=== PATIENT | female | born 2000 | race Two or more races ===

== ENCOUNTER 2022-06-21 20:15 | Emergency (ER) | payer OTHER ==
[~2022-06-21] VITALS: Ht 167.6 cm; Wt 88.6 kg
[2022-06-21 22:30] VITALS: BP 134/74
[2022-06-21] MEDS ORDERED: ACET-1158 PO (22:36)
[2022-06-21] MEDS ORDERED: AMOX-277 PO (22:36)
== END 2022-06-21 22:49 | disposition home or self-care (01) ==
LOC: ER 20:18
DX: H66.92 Otitis media, unspecified, left ear (principal); J06.9 Acute upper respiratory infection, unspecified

== ENCOUNTER → 2024-05-30 | Outpatient (CLI) | payer MEDICAID ==
[~2024-05-30] MED LIST: ACET500T58 PO; AMOX875T4 PO
[2024-05-31 13:06] LABS: Chlamydia Trachomatis, NAA Negative (Negative); Neisseria gonorrhoeae, NAA Negative (Negative)
== END | disposition home or self-care (01) ==
LOC: LAB 10:02
PROVIDERS: ATTEND Obstetrics & Gynecology
DX: Z34.00 Encounter for supervision of normal first pregnancy, unspecified trimester (principal); Z72.51 High risk heterosexual behavior; Z3A.00 Weeks of gestation of pregnancy not specified

== ENCOUNTER 2024-07-21 07:53 | Observation (INO) | payer MEDICAID ==
[2024-07-21] MEDS ORDERED: PREN-96 PO (11:16)
--- NOTE | 2024-07-21 12:05 | DVH ---
Procedure: US BIOPHYSICAL PROFILE 07/21/2024 11:14 AM Indication: term Comparison: None Technique: Sonogram of gravid uterus utilizing grayscale and color techniques. FINDINGS: Single living intrauterine gestation. Presentation: Cephalic Placenta: Anterior, grade 3 heart rate: 140 bpm SAVANNAH: 14.4 cm, DVP: 4.2 cm Maternal cervix: Not visualized Biophysical Profile: breathing score: 2 movement score: 2 tone: 2 Quantitative SAVANNAH score: 2 Total score: 8/8 IMPRESSION: 1. Single living as above. 2. Biophysical profile score: 8/8.
[2024-07-21 13:36] LABS: Urine Bacteria FEW /hpf (None Seen); Urine Blood Negative /uL (Negative); Urine Color Yellow (Yellow); Urine Mucus FEW (None Seen); Urine Protein, UAD 1+ (Negative); Urine Specific Gravity 1.026 (1.001-1.035); Urine Squamous Epithelial Cell MANY /hpf (<5); Urine Urobilinogen Normal (Negative); Urine WBC 6 /HPF (0-5)
[2024-07-21 13:37] LABS: Protein, Urine 40.7 mg/dL (1-14)
[2024-07-21 13:38] LABS: Basophils # (auto) 0 10 ^3/uL (0-0.2); Basophils % (auto) 0.4 % (0.0-2.0); Eosinophils # (auto) 0.1 10 ^3/uL (0-0.8); Eosinophils % (auto) 0.6 % (0.0-7.0); Hemoglobin 13.5 g/dL (12.2-16.2); Lymphocytes # (auto) 1.4 10 ^3/uL (0.4-5.4); Lymphocytes % (auto) 13.4 % (10.0-50.0); Mean Corpuscular Hemoglobin 30.3 pg (28.0-32.0); Mean Corpuscular Hgb Conc. 33.8 g/dL (32.0-36.0); Mean Corpuscular Volume 89.7 fL (80.0-100.0); Monocytes # (auto) 0.8 10 ^3/uL (0-1.3); Monocytes % (auto) 7.8 % (0.0-12.0); Neutrophils # (auto) 8.4 10 ^3/uL (1.6-8.6); Neutrophils % (auto) 77.8 % (37.0-80.0); Nucleated Red Blood Cells % 0.1 %; Platelet Count (auto) 249 10^3/uL (140-450); Red Blood Cells 4.46 10^6/uL (4.0-5.20); Red Cell Distribution Width 13.9 % (11.8-14.3); White Blood Cell 10.8 10^3/uL (4.4-10.8)
[2024-07-21 13:40] LABS: Creatinine, Urine 232.08 mg/dL (30.0-125.0); Urine Protein/Creatinine Ratio 0.18
[2024-07-21 13:43] LABS: Alanine Aminotransferase 14 U/L (7-40); Anion Gap 8 (5-15); BUN/Creatinine Ratio 12.3 (10.0-20.0); Bilirubin, Total 0.4 mg/dL (0.2-1.0); Blood Urea Nitrogen 9 mg/dL (9-23); Calcium 9.8 mg/dL (8.7-10.4); Carbon Dioxide 25 mmol/L (20-31); Glucose 92 mg/dL (74-106); Potassium 4.1 mmol/L (3.5-5.1); Sodium 140 mmol/L (136-145); Total Protein 6.4 g/dL (5.7-8.2); Uric Acid 4.7 mg/dL (3.1-7.8)
[2024-07-21 13:44] LABS: Alkaline Phosphatase 117 U/L (46-116); Aspartate Aminotransferase 10 U/L (13-40); Chloride 107 mmol/L (98-107); INR 0.89 (0.9-1.15); Partial Thromboplastin Time 30.9 SEC (24.5-34.5); Prothrombin Time 9.5 sec (9.3-11.8)
[2024-07-21 13:48] LABS: Urine Clarity Cloudy (Clear)
--- NOTE | 2024-07-22 06:33 | DVHDS2 ---
Physician Discharge Progress N Final Diagnosis: pih ruled out,40wks Operations or Procedures: Operations or Procedures nst,sono Condition on Discharge: Good Disposition: Home Discharge Instructions: Diet: Regular Activity: No Restrictions, As Tolerated Medications: na Follow Up Care: Specialist: 2d Discharge Statement: "Patient was advised to return to the ER or call 911 if any headaches, dizziness, shortness of breath, chest pain, abdominal pain, bleeding, fevers, or worsening of medical condition. Patient was counseled about treatment plan, medications, possible side effects, patientverbalized understanding. All questions were answered to the best of my ability. This discharge took greater then 30 minutes in planning, reviewing documentation, counseling the patient, and discussing with other team members." Visit Coding OBGYN Date of Service: Jul 21, 2024 Billing Provider: CHAR BAZAN DO EVENING OR NIGHT NURSE SUPERVISOR Common Visit Codes: [id number] INP/OBS CARE (HIGH) EVENING OR NIGHT NURSE SUPERVISOR Procedure Codes: 36121-68- NON-STRESS TEST CHAR BAZAN DO Jul 22, 2024 06:33
== END 2024-07-21 13:05 | disposition home or self-care (01) ==
LOC: UNDOADMOB 11:00 → LDRP 11:00
PROVIDERS: ADMIT Obstetrics & Gynecology; ATTEND Obstetrics & Gynecology
DX: O48.0 Post-term pregnancy (principal); O13.3 Gestational [pregnancy-induced] hypertension without significant proteinuria, third trimester; Z3A.40 40 weeks gestation of pregnancy; Z79.899 Other long term (current) drug therapy; Z98.890 Other specified postprocedural states
CPT/HCPCS: 36415; 76818; 80053; 81001; 81002; 82570; 84156; 84550; 85025; 85610; 85730; 94760; G0378; 76819

== ENCOUNTER 2024-07-23 04:56 | Observation (INO) | payer MEDICAID ==
[~2024-07-23 04:56] MED LIST changes: +PREN-96 PO
--- NOTE | 2024-07-23 10:37 | DVH ---
Procedure: US BIOPHYSICAL PROFILE 07/23/2024 10:06 AM Indication: Post dates Comparison: US BIOPHYSICAL PROFILE on DOS: 07/21/24 Technique: Sonogram of gravid uterus utilizing grayscale and color techniques. FINDINGS: Single living intrauterine gestation. Presentation: Cephalic Placenta: Anterior, grade 3 heart rate: 159 bpm SAVANNAH: 14.6 cm, DVP: 4.4 cm Maternal cervix: Not visualized Biophysical Profile: breathing score: 2 movement score: 2 tone: 2 Quantitative SAVANNAH score: 2 Total score: 8/8 IMPRESSION: 1. Single living as above. 2. Biophysical profile score: 8/8.
--- NOTE | 2024-07-23 18:44 | DVHDS2 ---
Physician Discharge Progress N Final Diagnosis: Term PREG,LABOR CHECK 40WKS Operations or Procedures: Operations or Procedures NST,SONO Condition on Discharge: Good Disposition: Home Discharge Instructions: Diet: Regular Activity: No Restrictions, As Tolerated Follow Up/Referral: IOL 07/24 night Medications: NA Follow Up Care: Specialist: 1 DAY FOR INDUCTION Discharge Statement: "Patient was advised to return to the ER or call 911 if any headaches, dizziness, shortness of breath, chest pain, abdominal pain, bleeding, fevers, or worsening of medical condition. Patient was counseled about treatment plan, medications, possible side effects, patientverbalized understanding. All questions were answered to the best of my ability. This discharge took greater then 30 minutes in planning, reviewing documentation, counseling the patient, and discussing with other team members." Visit Coding OBGYN Date of Service: Jul 23, 2024 Billing Provider: CHAR BAZAN DO EAR MUFF ASSEMBLER Common Visit Codes: [id number] INP/OBS CARE (HIGH) EAR MUFF ASSEMBLER Procedure Codes: 40723-36- NON-STRESS TEST CHAR BAZAN DO Jul 23, 2024 18:44
== END 2024-07-23 11:15 | disposition home or self-care (01) ==
LOC: LDRP 10:00
PROVIDERS: ADMIT Obstetrics & Gynecology; ATTEND Obstetrics & Gynecology
DX: O48.0 Post-term pregnancy (principal); Z98.890 Other specified postprocedural states; Z79.899 Other long term (current) drug therapy; Z3A.40 40 weeks gestation of pregnancy
CPT/HCPCS: 59025; 76819; 81002; G0378

== ENCOUNTER 2024-07-24 07:33 | Inpatient (IN) | payer MEDICAID ==
[~2024-07-24] VITALS: Ht 167.6 cm; Wt 104.3 kg
[2024-07-24] MEDS ORDERED: BUTORPHANOL TARTRATE 2 MG/1 ML VIAL IV PRN ×2 (21:15)
[2024-07-24 21:37] LABS: Basophils # (auto) 0.1 10 ^3/uL (0-0.2); Basophils % (auto) 0.8 % (0.0-2.0); Eosinophils # (auto) 0.1 10 ^3/uL (0-0.8); Eosinophils % (auto) 0.7 % (0.0-7.0); Hematocrit 39.8 % (36.0-46.0); Hemoglobin 13.4 g/dL (12.2-16.2); Lymphocytes # (auto) 1.9 10 ^3/uL (0.4-5.4); Lymphocytes % (auto) 18.2 % (10.0-50.0); Mean Corpuscular Hgb Conc. 33.7 g/dL (32.0-36.0); Mean Corpuscular Volume 88.8 fL (80.0-100.0); Monocytes # (auto) 0.9 10 ^3/uL (0-1.3); Monocytes % (auto) 8.4 % (0.0-12.0); Neutrophils # (auto) 7.6 10 ^3/uL (1.6-8.6); Neutrophils % (auto) 71.9 % (37.0-80.0); Nucleated Red Blood Cells % 0.1 %; Platelet Count (auto) 245 10^3/uL (140-450); Red Blood Cells 4.49 10^6/uL (4.0-5.20); Red Cell Distribution Width 14.5 % (11.8-14.3); White Blood Cell 10.6 10^3/uL (4.4-10.8)
[2024-07-24 21:50] LABS: Urine Bacteria FEW /hpf (None Seen); Urine Blood Negative /uL (Negative); Urine Clarity Turbid (Clear); Urine Color Yellow (Yellow); Urine Mucus FEW (None Seen); Urine Protein, UAD TRACE (Negative); Urine Specific Gravity 1.022 (1.001-1.035); Urine Squamous Epithelial Cell MOD /hpf (<5); Urine Urobilinogen Normal (Negative); Urine WBC 9 /HPF (0-5); Urine pH 5.5 (5.0-9.0)
[2024-07-24 21:54] LABS: Alanine Aminotransferase 14 U/L (7-40); Anion Gap 9 (5-15); Aspartate Aminotransferase 17 U/L (13-40); Calcium 9.8 mg/dL (8.7-10.4); Carbon Dioxide 23 mmol/L (20-31); Chloride 106 mmol/L (98-107); Potassium 3.8 mmol/L (3.5-5.1); Sodium 138 mmol/L (136-145); Total Protein 6.9 g/dL (5.7-8.2)
[2024-07-24 21:55] LABS: Albumin 4.2 g/dL (3.2-4.8); Bilirubin, Total 0.3 mg/dL (0.2-1.0)
[2024-07-24 21:57] LABS: Amphetamine Screen, Urine Neg (NEGATIVE); Barbiturate Scree,Urine Neg (NEGATIVE); Benzodiazephine Screen, Urine Neg (NEGATIVE); Cannabinoid Screen, Urine Neg (NEGATIVE); Cocaine Screen, Urine Neg (NEGATIVE); Opiate Scree,Urine Neg (NEGATIVE); Phencyclidine Screen, Urine Neg (NEGATIVE)
[2024-07-24 21:57] LABS: Alkaline Phosphatase 122 U/L (46-116); Blood Urea Nitrogen 9 mg/dL (9-23); Glucose 109 mg/dL (74-106)
[2024-07-24] MEDS: LACTATED RINGER'S 1,000 ML IV SCH (21:57)
[2024-07-24 22:06] LABS: INR 0.86 (0.9-1.15); Partial Thromboplastin Time 29.9 SEC (24.5-34.5); Prothrombin Time 9.3 sec (9.3-11.8)
[2024-07-25] MEDS: DERMOPLAST 60ML BOTTLE TOP PRN (00:15)
[2024-07-25] MEDS: miSOPROStol 50 MCG per PRE-CUT 1/2 TAB PO PRN (00:15)
[2024-07-25] MEDS: WITCH HAZEL-GLYCERIN PAD TOP PRN (00:15)
[2024-07-25] MEDS: PHISODERM TOP SOLN 240ML BTL TOP PRN (00:16)
--- NOTE | 2024-07-25 04:20 | DVHHP ---
CHIEF COMPLAINT: Here for induction of labor. HISTORY OF PRESENT ILLNESS: The patient is a 24-year-old 1, para 0 with EDC 07/21/2024, estimated gestational age of 40+ weeks, admitted for induction of labor. The patient denies having any rupture of membranes or bleeding. PAST MEDICAL HISTORY: None. PAST SURGICAL HISTORY: None. SOCIAL HISTORY: None. FAMILY HISTORY: None. OBSTETRIC AND GYNECOLOGIC HISTORY: Primigravid. GBS negative. Blood type A positive. Rubella immune. REVIEW OF SYSTEMS: Consistent with HPI. ALLERGIES: No known drug allergies. PHYSICAL EXAMINATION: VITAL SIGNS: Stable, afebrile. HEENT: Within normal limits. CARDIOVASCULAR: Regular rate and rhythm. LUNGS: Clear to auscultation. BREASTS: Symmetrical. No masses. ABDOMEN: Gravid. Positive heart. PELVIC: 1 cm, 50%, -3. EXTREMITIES: No clubbing, cyanosis or edema. IMPRESSION: Intrauterine at 40+ weeks, induction of labor. PLAN: Informed consent obtained. We will proceed with Cytotec. All questions answered. The patient wishes to proceed with planned procedure. DO KARINA Fisher/VAHE TID: [id number] RECEIPT: [id number]
--- NOTE | 2024-07-25 07:52 | DVHPN2 ---
[facility] Labor Progress Note Date and Time Seen Date Seen: Jul 25, 2024 Time Seen: 07:41 Subjective Patient reports: No new complaints Objective Vital Signs VSS, see chart Monitoring Method Monitoring Method: External Heart Rate Heart Rate Baseline: 135 Heart Rate Variability: Minimal Presence of FHR Accelerations: Yes Presence of FHR Decelerations: No Are all 5 Components of the FH: Yes Contractions Contractions Frequency: Occasional Duration of Contraction: 70 Contractions Intensity: Mild Contractions Resting Tone: Relaxed Membranes Membranes: Intact Vaginal Exam Vag Exam Deferred: No ([place] balloon inserted for cervical ripening with 60ml sterile fluid) Vaginal Exam Dilation: 2 Vaginal Exam Effacement: 60 Vaginal Exam Station: -2 Vaginal Exam Presentation: VTX Vaginal Exam Show: Small Medications Medications - Pitocin: No Medications - Pain Medications: PRN Medication - Epidural: No Medication - Other 2 doses of PO cytotec received thus far Lab Results Lab Results Current Medications Medications (Trade) Dose Ordered Sig/Randell Start Time Stop Time Status Last Admin Dose Admin Lactated Ringer's 1,000 ml @ 125 mls/hr Q8H 07/24/24 21:15 07/25/24 04:43 125 MLS/HR Witch Alka (Tucks) 1 pad PRN PRN 07/24/24 21:15 07/25/24 00:15 1 PAD Sodium Lauryl Sulfate (Phisoderm) 240 ml PRN PRN 07/24/24 21:15 07/25/24 00:16 240 ML Benzocaine (Dermoplast) 1 applic PRN PRN 07/24/24 21:15 07/25/24 00:15 1 APPLIC Butorphanol Tartrate (Stadol Injection) 1 mg Q4HPRN PRN 07/24/24 21:15 Butorphanol Tartrate (Stadol Injection) 2 mg Q4HPRN PRN 07/24/24 21:15 Misoprostol (Cytotec) 50 mcg Q4HPRN PRN 07/25/24 00:00 07/25/24 04:15 50 MCG Lidocaine HCl (Xylocaine) 20 ml ONCE PRN 07/24/24 21:15 Laboratory Tests Test 07/24/24 21:18 07/24/24 21:00 Range/Units White Blood Count 10.6 4.4-10.8 10^3/uL Red Blood Count 4.49 4.0-5.20 10^6/uL Hemoglobin 13.4 12.2-16.2 g/dL Hematocrit 39.8 36.0-46.0 % Mean Corpuscular Volume 88.8 80.0-100.0 fL Mean Corpuscular Hemoglobin 30.0 28.0-32.0 pg Mean Corpuscular Hemoglobin Concent 33.7 32.0-36.0 g/dL Red Cell Distribution Width 14.5 H 11.8-14.3 % Platelet Count 245 140-450 10^3/uL Mean Platelet Volume 8.7 6.9-10.8 fL Neutrophils (%) (Auto) 71.9 37.0-80.0 % Lymphocytes (%) (Auto) 18.2 10.0-50.0 % Monocytes (%) (Auto) 8.4 0.0-12.0 % Eosinophils (%) (Auto) 0.7 0.0-7.0 % Basophils (%) (Auto) 0.8 0.0-2.0 % Neutrophils # (Auto) 7.6 1.6-8.6 10 ^3/uL Lymphocytes # (Auto) 1.9 0.4-5.4 10 ^3/uL Monocytes # (Auto) 0.9 0-1.3 10 ^3/uL Eosinophils # (Auto) 0.1 0-0.8 10 ^3/uL Basophils # (Auto) 0.1 0-0.2 10 ^3/uL Nucleated Red Blood Cells 0.1 % Prothrombin Time 9.3 9.3-11.8 sec Prothrombin Time INR 0.86 L 0.9-1.15 Activated Partial Thromboplast Time 29.9 24.5-34.5 SEC Sodium Level 138 136-145 mmol/L Potassium Level 3.8 3.5-5.1 mmol/L Chloride Level 106 98-107 mmol/L Carbon Dioxide Level 23 20-31 mmol/L Anion Gap 9 5-15 Blood Urea Nitrogen 9 9-23 mg/dL Creatinine 0.75 0.550-1.02 mg/dL Glomerular Filtration Rate Calc 113 >90 mL/min BUN/Creatinine Ratio 12.0 10.0-20.0 Serum Glucose 109 H 74-106 mg/dL Calcium Level 9.8 8.7-10.4 mg/dL Total Bilirubin 0.3 0.2-1.0 mg/dL Aspartate Amino Transferase (AST) 17 13-40 U/L Alanine Aminotransferase (ALT) 14 7-40 U/L Alkaline Phosphatase 122 H 46-116 U/L Total Protein 6.9 5.7-8.2 g/dL Albumin 4.2 3.2-4.8 g/dL Treponema pallidum Antibody Non-reactive Negative Hepatitis C Antibody Negative Negative Urine Color Yellow Yellow Urine Clarity Turbid H Clear Urine pH 5.5 5.0-9.0 Urine Specific [place] 1.022 1.001-1.035 Urine Protein Trace H Negative Urine Ketones Negative Negative Urine Blood Negative Negative /uL Urine Nitrite Negative Negative Urine Bilirubin Negative Negative Urine Urobilinogen Normal Negative mg/dL Urine Leukocyte Esterase Trace Negative /uL Urine RBC 2 0 - 4 /hpf Urine Microscopic WBC 9 H 0-5 /HPF Urine Squamous Epithelial Cells Mod <5 /hpf Urine Bacteria Few H None Seen /hpf Urine Mucus Few None Seen Urine Glucose Normal Normal mg/dL Urine Opiates Screen Neg NEGATIVE Urine Fentanyl Screen Neg NEGATIVE Urine Barbiturates Screen Neg NEGATIVE Urine Phencyclidine Screen Neg NEGATIVE Urine Amphetamines Screen Neg NEGATIVE Urine Benzodiazepines Screen Neg NEGATIVE Urine Cocaine Screen Neg NEGATIVE Urine Cannabinoids Screen Neg NEGATIVE Assessment Assessment A: 24yo IUP@40.4wks Induction of Labor for post dates Category II EFM Intact Membranes GBS negative Plan Plan P: Continue PO cytotec when Category I EFM RN to apply traction to [place] balloon q1hr Intrauterine resuscitation PRN monitoring per order Pain mgmt PRN Frequent position changes in and out of bed encouraged Limit SVE unless necessary Anticipate CNM will consult with Dr. Paul PRN Plan discussed with: Patient, Spouse Visit Coding OBGYN Date of Service: Jul 25, 2024 Billing Provider: EDWINA PHILLIPS CNM TRIAL CONSULTANT Common Visit Codes: [id number] INP/OBS CARE(MOD) EDWINA PHILLIPS CNM Jul 25, 2024 07:52
--- NOTE | 2024-07-25 12:57 | DVHPN2 ---
CNM Labor Progress Note Date and Time Seen Date Seen: Jul 25, 2024 Time Seen: 12:54 Subjective Subjective Comment Pt feels more pain but tolerable still. Objective Vital Signs VSS, see chart Monitoring Method Monitoring Method: External Heart Rate Heart Rate Baseline: 130 Heart Rate Variability: Moderate Presence of FHR Accelerations: Yes Presence of FHR Decelerations: No Are all 5 Components of the FH: Yes Contractions Contractions Frequency: Other (q4 min) Duration of Contraction: 60 Contractions Intensity: Moderate Contractions Resting Tone: Relaxed Membranes Membranes: Ruptured Amniotic Fluid Color: CONSULTING UTILITY FORESTER Meconium (light) Vaginal Exam Vag Exam Deferred: Yes (SVE by RN: 5/70/-1) Vaginal Exam Presentation: VTX Medications Medications - Pitocin: No Medications - Pain Medications: PRN Medication - Epidural: No Lab Results Lab Results Vital Signs Date Time Temp Pulse Resp B/P (MAP) Pulse Ox O2 Delivery O2 Flow Rate FiO2 07/25/24 15:58 94 20 131/74 Current Medications Medications (Trade) Dose Ordered Sig/Randell Start Time Stop Time Status Last Admin Dose Admin Lactated Ringer's 1,000 ml @ 125 mls/hr Q8H 07/24/24 21:15 07/25/24 04:43 125 MLS/HR Witch Alka (Tucks) 1 pad PRN PRN 07/24/24 21:15 07/25/24 00:15 1 PAD Sodium Lauryl Sulfate (Phisoderm) 240 ml PRN PRN 07/24/24 21:15 07/25/24 00:16 240 ML Benzocaine (Dermoplast) 1 applic PRN PRN 07/24/24 21:15 07/25/24 00:15 1 APPLIC Butorphanol Tartrate (Stadol Injection) 1 mg Q4HPRN PRN 07/24/24 21:15 Butorphanol Tartrate (Stadol Injection) 2 mg Q4HPRN PRN 07/24/24 21:15 Misoprostol (Cytotec) 50 mcg Q4HPRN PRN 07/25/24 00:00 07/25/24 08:31 50 MCG Lidocaine HCl (Xylocaine) 20 ml ONCE PRN 07/24/24 21:15 Oxytocin 500 ml @ 999 mls/hr Q31M ONCE 07/25/24 11:15 07/25/24 12:05 DC Oxytocin 500 ml @ 125 mls/hr Q4H ONCE 07/25/24 11:45 07/25/24 15:44 DC Oxytocin 1,000 ml @ 6 ml/hr Q24H 07/25/24 11:15 07/25/24 13:00 6 ML/HR Nalbuphine HCl (Nubain) 10 mg Q4HP PRN 07/25/24 14:15 07/25/24 15:58 10 MG Ondansetron HCl (Zofran) 4 mg Q4HPRN PRN 07/25/24 14:15 07/25/24 15:59 4 MG Laboratory Tests Test 07/24/24 21:18 07/24/24 21:00 Range/Units White Blood Count 10.6 4.4-10.8 10^3/uL Red Blood Count 4.49 4.0-5.20 10^6/uL Hemoglobin 13.4 12.2-16.2 g/dL Hematocrit 39.8 36.0-46.0 % Mean Corpuscular Volume 88.8 80.0-100.0 fL Mean Corpuscular Hemoglobin 30.0 28.0-32.0 pg Mean Corpuscular Hemoglobin Concent 33.7 32.0-36.0 g/dL Red Cell Distribution Width 14.5 H 11.8-14.3 % Platelet Count 245 140-450 10^3/uL Mean Platelet Volume 8.7 6.9-10.8 fL Neutrophils (%) (Auto) 71.9 37.0-80.0 % Lymphocytes (%) (Auto) 18.2 10.0-50.0 % Monocytes (%) (Auto) 8.4 0.0-12.0 % Eosinophils (%) (Auto) 0.7 0.0-7.0 % Basophils (%) (Auto) 0.8 0.0-2.0 % Neutrophils # (Auto) 7.6 1.6-8.6 10 ^3/uL Lymphocytes # (Auto) 1.9 0.4-5.4 10 ^3/uL Monocytes # (Auto) 0.9 0-1.3 10 ^3/uL Eosinophils # (Auto) 0.1 0-0.8 10 ^3/uL Basophils # (Auto) 0.1 0-0.2 10 ^3/uL Nucleated Red Blood Cells 0.1 % Prothrombin Time 9.3 9.3-11.8 sec Prothrombin Time INR 0.86 L 0.9-1.15 Activated Partial Thromboplast Time 29.9 24.5-34.5 SEC Sodium Level 138 136-145 mmol/L Potassium Level 3.8 3.5-5.1 mmol/L Chloride Level 106 98-107 mmol/L Carbon Dioxide Level 23 20-31 mmol/L Anion Gap 9 5-15 Blood Urea Nitrogen 9 9-23 mg/dL Creatinine 0.75 0.550-1.02 mg/dL Glomerular Filtration Rate Calc 113 >90 mL/min BUN/Creatinine Ratio 12.0 10.0-20.0 Serum Glucose 109 H 74-106 mg/dL Calcium Level 9.8 8.7-10.4 mg/dL Total Bilirubin 0.3 0.2-1.0 mg/dL Aspartate Amino Transferase (AST) 17 13-40 U/L Alanine Aminotransferase (ALT) 14 7-40 U/L Alkaline Phosphatase 122 H 46-116 U/L Total Protein 6.9 5.7-8.2 g/dL Albumin 4.2 3.2-4.8 g/dL Treponema pallidum Antibody Non-reactive Negative Hepatitis C Antibody Negative Negative Urine Color Yellow Yellow Urine Clarity Turbid H Clear Urine pH 5.5 5.0-9.0 Urine Specific [place] 1.022 1.001-1.035 Urine Protein Trace H Negative Urine Ketones Negative Negative Urine Blood Negative Negative /uL Urine Nitrite Negative Negative Urine Bilirubin Negative Negative Urine Urobilinogen Normal Negative mg/dL Urine Leukocyte Esterase Trace Negative /uL Urine RBC 2 0 - 4 /hpf Urine Microscopic WBC 9 H 0-5 /HPF Urine Squamous Epithelial Cells Mod <5 /hpf Urine Bacteria Few H None Seen /hpf Urine Mucus Few None Seen Urine Glucose Normal Normal mg/dL Urine Opiates Screen Neg NEGATIVE Urine Fentanyl Screen Neg NEGATIVE Urine Barbiturates Screen Neg NEGATIVE Urine Phencyclidine Screen Neg NEGATIVE Urine Amphetamines Screen Neg NEGATIVE Urine Benzodiazepines Screen Neg NEGATIVE Urine Cocaine Screen Neg NEGATIVE Urine Cannabinoids Screen Neg NEGATIVE Assessment Assessment A: 24yo IUP@40.4wks Induction of Labor for post dates Category I EFM SROM, light meconium GBS negative Plan Plan Start IV pitocin per protocol monitoring per order Pain mgmt PRN Frequent position changes in and out of bed encouraged Limit SVE unless necessary Intrauterine resuscitation PRN Anticipate CNM will consult with Dr. Paul PRN Plan discussed with: Patient, Spouse Visit Coding OBGYN Date of Service: Jul 25, 2024 Billing Provider: EDWINA PHILLIPS CNM RADIOLOGICAL HEALTH SPECIALIST Common Visit Codes: [id number] INP/OBS CARE(HIGH) RADIOLOGICAL HEALTH SPECIALIST Procedure Codes: 12576-83- NON-STRESS TEST EDWINA PHILLIPS CNM Jul 25, 2024 12:57
[2024-07-25] MEDS: LACT. RINGERS/OXYTOCIN 20UNITS 1,000 ML IV SCH (13:00)
[2024-07-25] MEDS: NALBUPHINE HCL 10 MG/1ml INJECTION IV PRN (15:58)
[2024-07-25] MEDS: ONDANSETRON HCL 4 MG/2 ML VIAL IV PRN (15:59)
--- NOTE | 2024-07-25 16:32 | DVHPN2 ---
[facility] Labor Progress Note Date and Time Seen Date Seen: Jul 25, 2024 Time Seen: 15:55 Subjective Patient reports: Feels worse Subjective Comment Pt consents to IUPC/FSE insertion after discussion. Objective Vital Signs VSS, see chart Monitoring Method Monitoring Method: External Heart Rate Heart Rate Baseline: 140 Heart Rate Variability: Moderate Presence of FHR Accelerations: Yes Presence of FHR Decelerations: No Are all 5 Components of the FH: Yes Contractions Contractions Frequency: Other (q 2-4.5min) Duration of Contraction: 80 Contractions Intensity: Moderate Contractions Resting Tone: Relaxed Membranes Membranes: Ruptured Amniotic Fluid Color: NEEDLE LOOM SETTER Meconium (light) Vaginal Exam Vag Exam Deferred: No (IUPC inserted posteriorly, and FSE placed) Vaginal Exam Dilation: 6 Vaginal Exam Effacement: 80 Vaginal Exam Station: -1 Vaginal Exam Presentation: VTX Vaginal Exam Show: Small Medications Medications - Pitocin: Yes (2mu) Medications - Pain Medications: PRN Medication - Epidural: No Lab Results Lab Results Vital Signs Date Time Temp Pulse Resp B/P (MAP) Pulse Ox O2 Delivery O2 Flow Rate FiO2 07/25/24 15:58 94 20 131/74 Current Medications Medications (Trade) Dose Ordered Sig/Randell Start Time Stop Time Status Last Admin Dose Admin Lactated Ringer's 1,000 ml @ 125 mls/hr Q8H 07/24/24 21:15 07/25/24 04:43 125 MLS/HR Witpatience Alka (Tucks) 1 pad PRN PRN 07/24/24 21:15 07/25/24 00:15 1 PAD Sodium Lauryl Sulfate (Phisoderm) 240 ml PRN PRN 07/24/24 21:15 07/25/24 00:16 240 ML Benzocaine (Dermoplast) 1 applic PRN PRN 07/24/24 21:15 07/25/24 00:15 1 APPLIC Butorphanol Tartrate (Stadol Injection) 1 mg Q4HPRN PRN 07/24/24 21:15 Butorphanol Tartrate (Stadol Injection) 2 mg Q4HPRN PRN 07/24/24 21:15 Misoprostol (Cytotec) 50 mcg Q4HPRN PRN 07/25/24 00:00 07/25/24 08:31 50 MCG Lidocaine HCl (Xylocaine) 20 ml ONCE PRN 07/24/24 21:15 Oxytocin 500 ml @ 999 mls/hr Q31M ONCE 07/25/24 11:15 07/25/24 12:05 DC Oxytocin 500 ml @ 125 mls/hr Q4H ONCE 07/25/24 11:45 07/25/24 15:44 DC Oxytocin 1,000 ml @ 6 ml/hr Q24H 07/25/24 11:15 07/25/24 13:00 6 ML/HR Nalbuphine HCl (Nubain) 10 mg Q4HP PRN 07/25/24 14:15 07/25/24 15:58 10 MG Ondansetron HCl (Zofran) 4 mg Q4HPRN PRN 07/25/24 14:15 07/25/24 15:59 4 MG Laboratory Tests Test 07/24/24 21:18 07/24/24 21:00 Range/Units White Blood Count 10.6 4.4-10.8 10^3/uL Red Blood Count 4.49 4.0-5.20 10^6/uL Hemoglobin 13.4 12.2-16.2 g/dL Hematocrit 39.8 36.0-46.0 % Mean Corpuscular Volume 88.8 80.0-100.0 fL Mean Corpuscular Hemoglobin 30.0 28.0-32.0 pg Mean Corpuscular Hemoglobin Concent 33.7 32.0-36.0 g/dL Red Cell Distribution Width 14.5 H 11.8-14.3 % Platelet Count 245 140-450 10^3/uL Mean Platelet Volume 8.7 6.9-10.8 fL Neutrophils (%) (Auto) 71.9 37.0-80.0 % Lymphocytes (%) (Auto) 18.2 10.0-50.0 % Monocytes (%) (Auto) 8.4 0.0-12.0 % Eosinophils (%) (Auto) 0.7 0.0-7.0 % Basophils (%) (Auto) 0.8 0.0-2.0 % Neutrophils # (Auto) 7.6 1.6-8.6 10 ^3/uL Lymphocytes # (Auto) 1.9 0.4-5.4 10 ^3/uL Monocytes # (Auto) 0.9 0-1.3 10 ^3/uL Eosinophils # (Auto) 0.1 0-0.8 10 ^3/uL Basophils # (Auto) 0.1 0-0.2 10 ^3/uL Nucleated Red Blood Cells 0.1 % Prothrombin Time 9.3 9.3-11.8 sec Prothrombin Time INR 0.86 L 0.9-1.15 Activated Partial Thromboplast Time 29.9 24.5-34.5 SEC Sodium Level 138 136-145 mmol/L Potassium Level 3.8 3.5-5.1 mmol/L Chloride Level 106 98-107 mmol/L Carbon Dioxide Level 23 20-31 mmol/L Anion Gap 9 5-15 Blood Urea Nitrogen 9 9-23 mg/dL Creatinine 0.75 0.550-1.02 mg/dL Glomerular Filtration Rate Calc 113 >90 mL/min BUN/Creatinine Ratio 12.0 10.0-20.0 Serum Glucose 109 H 74-106 mg/dL Calcium Level 9.8 8.7-10.4 mg/dL Total Bilirubin 0.3 0.2-1.0 mg/dL Aspartate Amino Transferase (AST) 17 13-40 U/L Alanine Aminotransferase (ALT) 14 7-40 U/L Alkaline Phosphatase 122 H 46-116 U/L Total Protein 6.9 5.7-8.2 g/dL Albumin 4.2 3.2-4.8 g/dL Treponema pallidum Antibody Non-reactive Negative Hepatitis C Antibody Negative Negative Urine Color Yellow Yellow Urine Clarity Turbid H Clear Urine pH 5.5 5.0-9.0 Urine Specific [place] 1.022 1.001-1.035 Urine Protein Trace H Negative Urine Ketones Negative Negative Urine Blood Negative Negative /uL Urine Nitrite Negative Negative Urine Bilirubin Negative Negative Urine Urobilinogen Normal Negative mg/dL Urine Leukocyte Esterase Trace Negative /uL Urine RBC 2 0 - 4 /hpf Urine Microscopic WBC 9 H 0-5 /HPF Urine Squamous Epithelial Cells Mod <5 /hpf Urine Bacteria Few H None Seen /hpf Urine Mucus Few None Seen Urine Glucose Normal Normal mg/dL Urine Opiates Screen Neg NEGATIVE Urine Fentanyl Screen Neg NEGATIVE Urine Barbiturates Screen Neg NEGATIVE Urine Phencyclidine Screen Neg NEGATIVE Urine Amphetamines Screen Neg NEGATIVE Urine Benzodiazepines Screen Neg NEGATIVE Urine Cocaine Screen Neg NEGATIVE Urine Cannabinoids Screen Neg NEGATIVE Assessment Assessment 24yo IUP@40.4wks Induction of Labor for post dates Category I EFM SROM, light meconium GBS negative Plan Plan Continue with IV pitocin per protocol monitoring per order Pain mgmt PRN Frequent position changes in and out of bed encouraged Limit SVE unless necessary Intrauterine resuscitation PRN Anticipate CNM will consult with Dr. Paul PRN Plan discussed with: Patient, Spouse Visit Coding OBGYN Date of Service: Jul 25, 2024 Billing Provider: EDWINA PHILLIPS CNM HAND CHAIN MAKER Common Visit Codes: [id number] INP/OBS CARE(HIGH) EDWINA PHILLIPS CNM Jul 25, 2024 16:32
[2024-07-25] MEDS: LACT. RINGERS/OXYTOCIN 20UNITS 500 ML IV ONE ×2 (18:05→19:27)
[2024-07-25] MEDS: LIDOCAINE 2%HCL (LOCAL ANESTH.) INJ 20ML MDV IJ PRN (18:09)
[2024-07-25] MEDS: KETOROLAC TROMETH 30 MG/ML 1ML VIAL IV ONE (18:10)
[2024-07-25] MEDS: KETOROLAC TROMETH 30 MG/ML 1ML VIAL ONE (18:11)
[2024-07-25 18:23] VITALS: BP 113/59; PULSE 110; RESP 20; TEMP 98.2; O2SAT 95
--- NOTE | 2024-07-25 19:05 | LDN2 ---
Labor and Delivery Note Date 07/25/24 Age 24 1 Para 1 AB n/a EDC 07/21/2024 EGA 40.4 weeks Diagnosis elective IOL then Vaginal Delivery: VTX Vacuum Assisted: No Placenta: Spontaneous Sex: Female Weight pending Apgars 9/9 Nuchal Cord Transected: No Amniotic Fluid: Clear (blood tinged during but light meconium at time of SROM) Anesthesia local anesthesia Episiotomy: No Extension: No Repaired with 3-0 vicryl suture EBL QBL: 450 mL Labs Blood Bank 07/24/24 21:18: Blood Type A POSITIVE Complications n/a Conditions Stable Assistant Director Of Plant Operations Dr. Ramirez Comments/Significant Med Masha At 1732 this 24yo now delivered a viable Female infant by w/ APGARS 9/9. RT at bedside for delivery. JANET. placed skin to skin on pts chest. Cord clamped and cut after pulsation ceased. Cord blood sent. Intact 3-vessel cord placenta delivered spontaneously, Anatoliy. Marginal cord insertion. Pitocin IV bolus started. Placenta sent to pathology. Patient had local anesthesia. Cervix/vagina inspected (intact) and second degree perineal laceration and right labial laceration present which was repaired with 3-0 vicryl suture. Rectal mucosa and sphincter intact. Rectal exam performed, WNL, not involved. Fundus at U, firm, midline, and light lochia. QBL 450 mL. VSS. Count correct x2. Patient to care and baby to couplet care, both stable. Visit Coding OBGYN Date of Service: Jul 25, 2024 Billing Provider: EDWINA PHILLIPS CNM FIELD REPORTER Common Visit Codes: PROCEDURE ONLY FIELD REPORTER Procedure Codes: [id number] DEL INCLUDING MONA AGUILERA MDWF Jul 25, 2024 19:05
[2024-07-25] MEDS: DOCUSATE SOD 100 MG CAP PO SCH (22:28)
[2024-07-25 22:30] VITALS: BP 118/67; PULSE 108; RESP 16; TEMP 98.6; O2SAT 97
[2024-07-25] MEDS: IBUPROFEN 600 MG TAB PO PRN (23:57)
--- NOTE | 2024-07-26 00:04 | DVHPN2 ---
Progress Note Date Seen: Jul 26, 2024 Subjective bleeding is less, eating food without issues, denies lightheaded/dizziness, pain well controlled with oral medications, no concerns with urinating, passing flatus, no BM yet, ambulating well, well vital signs Vital Sign Date Time Temp Pulse Resp B/P (MAP) Pulse Ox O2 Delivery O2 Flow Rate FiO2 07/25/24 22:30 98.6 108 16 118/67 (84) 97 98.6 07/25/24 19:32 Room Air medications Current Medications Medications Dose Ordered Sig/Randell Route Start Time Stop Time Status Last Admin Dose Admin Lactated Ringer's 1,000 ml @ 125 mls/hr Q8H IV 07/24/24 21:15 07/25/24 19:25 125 MLS/HR Witch Alka 1 pad PRN PRN TOP 07/24/24 21:15 07/25/24 00:15 1 PAD Sodium Lauryl Sulfate 240 ml PRN PRN TOP 07/24/24 21:15 07/25/24 00:16 240 ML Benzocaine 1 applic PRN PRN TOP 07/24/24 21:15 07/25/24 00:15 1 APPLIC Butorphanol Tartrate 1 mg Q4HPRN PRN IV 07/24/24 21:15 Cancel Butorphanol Tartrate 2 mg Q4HPRN PRN IV 07/24/24 21:15 Cancel Ondansetron HCl 4 mg Q4HPRN PRN IV 07/25/24 14:15 07/25/24 15:59 4 MG Ibuprofen 600 mg Q6HP PRN PO 07/26/24 00:00 07/25/24 23:57 600 MG Acetaminophen 650 mg Q4HP PRN PO 07/25/24 18:15 Docusate Sodium 200 mg HS PO 07/25/24 22:00 07/25/24 22:28 200 MG laboratory and microbiology Laboratory Tests 07/24/24 21:18 Test 07/24/24 21:18 Range/Units Serum Glucose 109 H 74-106 mg/dL Objective VSS Chest: heart sounds normal and lung sounds clear bilaterally Abd: soft, non-tender, fundus at U/firm/midline, active bowel sounds, no rebound or guarding Perineum: sutures intact, edges well approximated, no erythema/edema noted Ext: Non-tender, No edema, 2+ BLE DTRs Lochia: minimal See lab results Problems(with codes): (1) (normal spontaneous vaginal delivery) (2) Second degree perineal laceration during delivery (3) Obstetric labial laceration, delivered, current hospitalization Assessment/Plan A: 24yo now PPD#1 s/p Rh+ Rubella Immune Pain control with PO medications Bowel regimen P: Possible discharge home around 24 hours PP Continue routine PP care Rx sent to pharmacy precautions and preeclampsia warning signs reviewed F/U with [facility] office in 2 weeks Plan discussed with: Patient, Spouse Visit Coding OBGYN Date of Service: Jul 26, 2024 Billing Provider: EDWINA PHILLIPS CNM PHOTOLITHOGRAPHER Common Visit Codes: [id number] INP/OBS CARE(HIGH) MONA AGUILERA MDWF Jul 26, 2024 00:04
[2024-07-26 02:45] VITALS: BP 94/48; PULSE 76; RESP 18; TEMP 98.5; O2SAT 96
[2024-07-26] MEDS: ACETAMINOPHEN 325 MG TAB PO PRN (06:54)
[2024-07-26 07:15] VITALS: BP 115/61; PULSE 86; RESP 16; TEMP 98.8; O2SAT 97
[2024-07-26 11:15] VITALS: BP 111/59; PULSE 92; RESP 20; TEMP 97.9; O2SAT 100
[2024-07-26] MEDS ORDERED: IBU600T PO (13:32)
[2024-07-26] MEDS ORDERED: PREN-96 PO (13:32)
[2024-07-26] MEDS ORDERED: DOCU-265 PO (13:32)
[2024-07-26 13:44] LABS: Basophils # (auto) 0.1 10 ^3/uL (0-0.2); Basophils % (auto) 0.5 % (0.0-2.0); Eosinophils # (auto) 0 10 ^3/uL (0-0.8); Eosinophils % (auto) 0.1 % (0.0-7.0); Hematocrit 33.8 % (36.0-46.0); Hemoglobin 11.4 g/dL (12.2-16.2); Lymphocytes # (auto) 2.4 10 ^3/uL (0.4-5.4); Lymphocytes % (auto) 14.4 % (10.0-50.0); Mean Corpuscular Hemoglobin 30.5 pg (28.0-32.0); Mean Corpuscular Hgb Conc. 33.7 g/dL (32.0-36.0); Mean Corpuscular Volume 90.5 fL (80.0-100.0); Monocytes # (auto) 1.2 10 ^3/uL (0-1.3); Monocytes % (auto) 7.1 % (0.0-12.0); Neutrophils # (auto) 13.1 10 ^3/uL (1.6-8.6); Neutrophils % (auto) 77.9 % (37.0-80.0); Platelet Count (auto) 193 10^3/uL (140-450); Red Blood Cells 3.74 10^6/uL (4.0-5.20); Red Cell Distribution Width 14.4 % (11.8-14.3); White Blood Cell 16.8 10^3/uL (4.4-10.8)
[2024-07-26 15:00] VITALS: BP 106/70; PULSE 95; RESP 18; TEMP 97.7; O2SAT 100
[2024-07-26 18:30] VITALS: BP 106/61; PULSE 84; RESP 18; TEMP 98.2; O2SAT 97
--- NOTE | 2024-07-26 19:11 | DVHDS2 ---
Obstetrics Discharge Summary Obstetrics Discharge Summary Date of Admission: Jul 24, 2024 Date of Discharge: Jul 26, 2024 Reason For Admission: Induction of Labor Procedures: NST Intrapartum Procedures: Spontaneous vaginal deliv Procedures: Hct/date:, Hgb/date: Operative Complicat: Laceration (2nd degree perineal and right labial) Discharge Diagnosis: Term -Delivered Discharge Information: Activity (as tolerated, no heavy lifting and nothing in the vagina for 6 weeks), Diet (Routine), Medications (RX sent ), Instructions (Routine), Discharge to (Home), Accompanied by (Partner- Tin), Discarge date (07/26/2024) Visit Coding OBGYN Date of Service: Jul 26, 2024 Billing Provider: EDWINA PHILLIPS CNM SCREW MACHINE OPERATOR Common Visit Codes: 30844-ILR/OBS DISCH DAY <30MIN MONA AGUILERA STDBasilio MDWF Jul 26, 2024 19:10
[2024-07-26 20:45] VITALS: BP 106/61; PULSE 84; RESP 18; TEMP 98.2; O2SAT 97
== END 2024-07-26 20:45 | disposition home or self-care (01) | DRG 560 ==
LOC: LDRP 20:57
PROVIDERS: ADMIT Obstetrics & Gynecology; ATTEND Obstetrics & Gynecology
PROC: 10E0XZZ Delivery of Products of Conception, External Approach (ICD-10-PCS; principal; 2024-07-25)
PROC: 0KQM0ZZ Repair Perineum Muscle, Open Approach (ICD-10-PCS; 2024-07-25)
PROC: 0UQMXZZ Repair Vulva, External Approach (ICD-10-PCS; 2024-07-25)
PROC: 3E0DXGC Introduction of Other Therapeutic Substance into Mouth and Pharynx, External Approach (ICD-10-PCS; 2024-07-25)
DX: O48.0 Post-term pregnancy (principal); Z37.0 Single live birth; R71.0 Precipitous drop in hematocrit; O70.1 Second degree perineal laceration during delivery; O77.0 Labor and delivery complicated by meconium in amniotic fluid; Z3A.40 40 weeks gestation of pregnancy; O76 Abnormality in fetal heart rate and rhythm complicating labor and delivery
CPT/HCPCS: 36415; 59200; 59409; 80053; 80307; 81001; 85025; 85610; 85730; 86780; 86803; 86850; 86900; 86901; 94760; 94762; 96360; 96361; 96365; 96366; 96374; 96375; G0378; J1885; J2405; J2590

== ENCOUNTER 2024-07-29 22:44 | Emergency (ER) | payer MEDICAID ==
[~2024-07-29] VITALS: Ht 167.6 cm; Wt 103.4 kg
[~2024-07-29 22:44] MED LIST changes: -ACET500T58 PO; -AMOX875T4 PO; +DOCU-265 PO; +IBU600T PO
[2024-07-29 23:00] VITALS: BP 137/87; PULSE 88; RESP 16; TEMP 98.8; O2SAT 98
--- NOTE | 2024-07-29 23:06 | ED.PDOC ---
Musculoskeletal HPI Comments 24-year-old female came to ER due to bilateral leg swelling. Patient delivered term via normal spontaneous vaginal delivery 3 days ago. Patient comes in concerned that both her legs are swollen. Denies any chest pain or shortness of breath. Vital signs were stable on arrival. Chief Complaint: Extremity Swelling Time Seen by MD: 23:04 Primary Care Provider: UNKNOWN Reviewed Notes: Nurses Notes Allergies: Coded Allergies: NO KNOWN ALLERGIES (Unverified , 07/24/24) Home Meds Active Scripts Ibuprofen Micronized (MOTRIN TABLET) 600 Mg Tb, 600 MG PO Q6HP PRN for 20 Days, #80 TAB Prov:EDWINA PHILLIPS [facility] 07/26/24 Docusate Sodium (Docusate Sodium) 100 Mg Cap, 200 MG PO HS PRN for 30 Days, #60 CAP 2 Refills Prov:EDWINA PHILLIPS [facility] 07/26/24 Vit W/ Ferrous Fumara ( One Daily) Daily Tab, 1 TAB PO DAILY, #90 TAB 3 Refills Prov:EDWINA PHILLIPS [facility] 07/26/24 Discontinued Scripts Amoxicillin & Pot Clavulanate (Amoxicillin/Potassium Cla) 875 Mg Tab, 1 TAB PO BID for 7 Days, #14 TAB 0 Refills Prov:JASPREET MILLAN 06/21/22 Acetaminophen (Acetaminophen) 500 Mg Tab, 500 MG PO QIDP, #30 TAB 0 Refills Prov:JASPREET MILLAN 06/21/22 Information Source: Patient, Spouse Mode of Arrival: Ambulatory Location: Bilateral Extremity Location: Leg Timing: Days Prehospital treatment: None Severity: Mild Able to Move Extremity: Yes Bear Weight: Fully Pain: Mild Mechanism: Spontaneous Circumstances: Other () Onset of Symptoms: Spontaneous Symptoms: Swelling DVT Risk Factors: NONE Associated signs and symptoms: Other (Bilateral leg swelling) Past Medical History PAST MEDICAL HISTORY: Denies Past Medical History (Other): Recent vaginal delivery of a healthy baby Surgical History: Denies all surgeries 1 Para 1 Family History Family History: Reviewed,noncontributory to illness Social History Smoker: Non-Smoker Alcohol: Denies ETOH Use Drugs: Denies Drug Use Lives In: Home Constitutional: denies: chills, diaphoresis, fatigue, fever, malaise, sweats, weakness, others EENTM: denies: blurred vision, double vision, ear bleeding, ear discharge, ear drainage, ear pain, ear ringing, eye pain, eye redness, hearing loss, mouth pain, mouth swelling, nasal discharge, nose bleeding, nose congestion, nose pain, photophobia, tearing, throat pain, throat swelling, voice changes, others Respiratory: denies: cough, hemoptysis, orthopnea, SOB at rest, shortness of breath, SOB with excertion, stridor, wheezing, others Cardiovascular: denies: chest pain, dizzy spells, diaphoresis, Dyspnea on exertion, edema, irregular heart beat, left arm pain, lightheadedness, palpitations, PND, syncope, others Gastrointestinal: denies: abdomen distended, abdominal pain, blood streaked bowels, constipated, diarrhea, dysphagia, difficulty swallowing, hematemesis, melena, nausea, poor appetite, poor fluid intake, rectal bleeding, rectal pain, vomiting, others Genitourinary: denies: abnormal vagina bleeding, burning, dyspareunia, dysuria, flank pain, frequency, hematuria, incontinence, pain, , vagina discharge, urgency, others Neurological: denies: dizziness, fainting, headache, left sided numbness, left sided weakness, numbness, paresthesia, pre-existing deficit, right sided numbness, right sided weakness, seizure, speech problems, tingling, tremors, weakness, others Musculoskeletal: reports: others (Bilateral leg swelling); denies: back pain, gout, joint pain, joint swelling, muscle pain, muscle stiffness, neck pain Integumetry: denies: bruises, change in color, change in hair/nails, dryness, laceration, lesions, lumps, rash, wounds, others Allergic/Immunocompromised: denies: Difficulty Healing, Frequent Infections, Hives, Itching, others Hematologic/Lymphatic: denies: anemia, blood clots, easy bleeding, easy bruising, swollen glands, others Endocrine: denies: excessive hunger, excessive sweating, excessive thirst, excessive urination, flushing, intolerance to cold, intolerance to heat, unexplained weight gain, unexplained weight loss, others Psychiatric: denies: anxiety, bipolar disorder, depression, hopeless, panic disorder, schizophrenia, sleepless, suicidal, others Physical Exam General Appearance: Mild Distress (Moderate distress due to anxiety related to the bilateral lower extremity swelling rather than pain concerns.), Obese HEENT: Normal ENT Inspection, Pharynx Normal, TMs Normal Neck: Full Range of Motion, Non-Tender, Normal, Normal Inspection Respiratory: Chest Non-Tender, Lungs Clear, No Accessory Muscle Use, No Respiratory Distress, Normal Breath Sounds Cardiovascular: No Edema, No JVD, No Murmur, No Gallop, Normal Peripheral Pulses, Regular Rate/Rhythm Breast Exam: Deferred Gastrointestinal: No Organomegaly, Non Tender, No Pulsatile Mass, Normal Bowel Sounds, Soft Genitalia: Deferred Pelvic: Deferred Rectal: Deferred Extremities: Other (Patient displays very mild 1+ pitting edema to bilateral lower extremities. No signs of DVT formation. No erythema noted. Distal neurovascularly intact.) Musculoskeletal : Apperance: Normal Neurologic: Alert, No Motor Deficits, Normal Affect, Normal Mood, No Sensory Deficits Cerebellar Function: Normal Reflexes: Normal Skin: Dry, Normal Color, Warm Lymphatic: No Adenopathy Was a procedure done? Was a procedure done?: No Differential Diagnosis EXT Differential Diagnosis: Other (Bilateral lower extremity edema) X-Ray, Labs, Meds, VS Vital Signs Date Time Temp Pulse Resp B/P (MAP) Pulse Ox O2 Delivery O2 Flow Rate FiO2 07/29/24 23:00 98.8 88 16 137/87 (104) 98 98.8 X-Ray, Labs, Meds, VS Comment Spent time discussing the patient's concerns with her. Advised that this is normal for mother's as it will take her several weeks to adjust fluid management now that the baby has been delivered. Advised elevation of legs as well as cold foot soaks. Time of 1ST Reevaluation: 23:58 Reevaluation 1ST: Unchanged Consultation: PCP Patient Education/Counseling: Diagnosis, Treatment Family Education/Counseling: Diagnosis, Treatment Departure 1 Departure Time of Disposition: 23:59 Impression: Primary Impression: Bilateral lower extremity edema Disposition: 01 HOME / SELF CARE / HOMELESS Condition: Stable Additional Instructions: Advised patient elevate legs above her heart or do leg elevation is against the wall. Cold water soaks has been advised as well. Discharged With: Self, Spouse Critical Care Note Critical Care Time?: No Stability Stability form required: No Heart Score Heart Score: Heart Score Response (Comments) Value History N/A 0 EKG N/A 0 Age N/A 0 Risk Factors N/A 0 Troponin N/A 0 Total 0 I personally scribed for TURNER SIDHU PAC ([email or web address]) on 07/29/24 at 23:06. Electronically submitted by Dgao Villarreal ([facility]). TURNER SIDHU PAC Jul 29, 2024 23:06
== END 2024-07-30 01:40 | disposition home or self-care (01) ==
LOC: ER 22:44
DX: R60.0 Localized edema (principal); Z98.890 Other specified postprocedural states